=== PATIENT | male | born 1985 | race Caucasian/White ===

== ENCOUNTER 2024-06-05 09:20 | Outpatient (CLI) | payer BC, SELFPAY | END 2024-06-05 09:21 | disposition home or self-care (01) | LOC: NFLDREF 06-09 02:15 | PROVIDERS: Visit Provider Registered Nurse | DX: N46.9 Male infertility, unspecified (principal) | CPT/HCPCS: 89322 ==

== ENCOUNTER 2024-07-10 09:00 | Outpatient (CLI) | payer BC, SELFPAY | END 2024-07-10 09:01 | disposition home or self-care (01) | LOC: NFLDREF 07-14 20:10 | PROVIDERS: Visit Provider Registered Nurse | DX: Z31.41 Encounter for fertility testing (principal) | CPT/HCPCS: 89322 ==